=== PATIENT | male | born 1965 | race Caucasian/White ===

== ENCOUNTER 2017-07-18 12:18 | Observation (INO) | payer OTHER ==
[~2017-07-18] VITALS: Ht 177.8 cm; Wt 96.3 kg
[2017-07-18] MEDS ORDERED: NITROGLYCERIN OINT 2% 1GM PACKET EXT STA (12:41)
[2017-07-18] MEDS ORDERED: ASPIRIN 81 MG CHEW PO STA (12:41)
[2017-07-18] MEDS ORDERED: SODIUM CHLORIDE 0.9% 1000ML 500 ML IV STA (12:41)
--- NOTE | 2017-07-18 12:45 | EMERGENCY ROOM VISIT NOTE ---
History Report prepared by Diandra: Carlin Lemus Under the Supervision of: Dr. Timothy Huizar M.D. First contact with patient: 12:34 Chief Complaint: CHEST PAIN Stated Complaint: CHEST PAIN Nursing Triage Summary: Chest pain, center of chest, off and on for approx 3 months. Dyspneic on exertion. States since he was placed on the beta-iain for approx a week and now feels that his hands and feet ache and numb. History of Present Illness The patient is a 51 year old male who presents to the Emergency Room from [facility] with complaints of worsening chest pain that started around 3 months ago. He says that he has been having problems, especially at night, with shortness of breath with exertion, as well as chest tightness. The patient was started on beta-blockers last week, but has had worsening symptoms the past few days. He says that he has had a lot of chest pressure the past couple nights, and his hands have been going numb. Currently, he rates the chest pressure as a 5 out of 10 in severity, but the pain has gotten up to a 7 or 8 out of 10 at night. The patient states that he has been getting lightheaded and dizzy when getting up from laying down or sitting, and has not been able to get around at all over the past week. He adds that he has a strong family history of heart attacks, with lots of family members dying early of CT. The patient says that he has had to have stress tests over the years, but has passed. His last stress test was a few years ago. He notes that he has a history of hypertension and high cholesterol. Source of History: patient, other (senior care notes) Onset: 3 months ago Position: chest Symptom Intensity: gets as bad as 7 or 8 out of 10 in severity Quality: pressure, other Timing: worsening Associated Symptoms: + SOB (with exertion), + numbness (in hands at night) Note: Associated symptoms: Dizzy and lightheaded when getting up. Review of Systems See HPI for pertinent positives & negatives. A total of 10 systems reviewed and were otherwise negative. Past Medical & Surgical Medical Problems: (1) HLD (hyperlipidemia) (2) HTN (hypertension) (3) Precordial chest pain Family History FH: heart disease Social History Smoking Status: Current Every Day Smoker Housing Status: other (prisoner) Occupation Status: other (prisoner) Current/Historical Medications Scheduled Aspirin (Aspirin Ec), 81 MG PO DAILY Atorvastatin (Lipitor), 20 MG PO QPM Levothyroxine Sodium (Levothyroxine Sodium), 50 MCG PO DAILY Lisinopril (Zestril), 10 MG PO DAILY Metoprolol Tartrate (Lopressor) (Lopressor), 25 MG PO BID Nitroglycerin (Nitrostat), 0.4 MG UT PRN Allergies Coded Allergies: No Known Allergies (Unverified , 07/18/17) Physical Exam Vital Signs Date Time Temp Pulse Resp B/P (MAP) Pulse Ox O2 Delivery O2 Flow Rate FiO2 07/18/17 14:00 70 23 128/96 96 Room Air 07/18/17 12:57 74 23 133/86 97 Room Air 07/18/17 12:35 81 07/18/17 12:25 97 Room Air 07/18/17 12:22 36.6 80 18 159/92 97 Room Air Physical Exam GENERAL: Patient is in no acute distress. HEENT: No acute trauma, normocephalic atraumatic, mucous membranes moist, no nasal congestion, no scleral icterus. NECK: No stridor, no adenopathy, no meningismus, trachea is midline. LUNGS: Clear to auscultation bilaterally, no wheeze, no rhonchi, breath sounds equal. HEART: Without murmurs gallops or rubs, regular rate and rhythm. ABDOMEN: Soft, nontender, bowel sounds positive, no hernias, no peritonitis. EXTREMITIES: No cyanosis or edema, full range of motion of all the joints without pain or difficulty, no signs for acute trauma. NEUROLOGIC: Oriented x 3, no acute motor or sensory deficits, no focal weakness. SKIN: No rash, no jaundice, no diaphoresis. Medical Decision & Procedures ER Provider Diagnostic Interpretation: X-ray results as stated below per interpretation by me and the radiologist: CHEST ONE VIEW PORTABLE HISTORY: 51 years-old Male acute chest pain COMPARISON: None available TECHNIQUE: Portable upright AP view of the chest FINDINGS: Cardiomediastinal and hilar silhouettes are within normal limits. No pneumothorax, pleural effusion or focal airspace consolidation. There is no overt pulmonary edema. Bones are grossly intact. IMPRESSION: No acute cardiopulmonary process. The above report was generated using voice recognition software. It may contain grammatical, syntax or spelling errors. Electronically signed by: Galdino Fox M.D. 07/18/2017 1:01 PM Dictated Date/Time: 07/18/2017 1:00 PM Laboratory Results 07/18/17 12:40 07/18/17 12:40 Test 07/18/17 12:40 07/18/17 12:48 07/18/17 14:05 Red Blood Count 4.90 M/uL (4.7-6.1) Mean Corpuscular Volume 90.8 fL (80-100) Mean Corpuscular Hemoglobin 31.8 pg (25-34) Mean Corpuscular Hemoglobin Concent 35.1 g/dl (32-36) RDW Standard Deviation 39.2 fL (36.4-46.3) RDW Coefficient of Variation 11.8 % (11.5-14.5) Mean Platelet Volume 10.7 fL (7.4-10.4) Prothrombin Time 11.7 SECONDS (9.0-12.0) Prothromb Time International Ratio 1.1 (0.9-1.1) Activated Partial Thromboplast Time 27.6 SECONDS (21.0-31.0) Partial Thromboplastin Ratio 1.1 Anion Gap 8.0 mmol/L (3-11) Est Creatinine Clear Calc Drug Dose 107.1 ml/min Estimated GFR () 102.0 Estimated GFR (Non- 88.0 BUN/Creatinine Ratio 14.1 (10-20) Calcium Level 8.9 mg/dl (8.5-10.1) Total Bilirubin 0.3 mg/dl (0.2-1) Aspartate Amino Transf (AST/SGOT) 136 U/L (15-37) Alanine Aminotransferase (ALT/SGPT) 287 U/L (12-78) Alkaline Phosphatase 76 U/L (45-117) Total Protein 7.8 gm/dl (6.4-8.2) Albumin 3.6 gm/dl (3.4-5.0) Globulin 4.2 gm/dl (2.5-4.0) Albumin/Globulin Ratio 0.9 (0.9-2) Bedside D-Dimer 183 ng/mlFEU (0-450) Creatine Kinase MB Ratio (0-3.0) Laboratory results reviewed by me. Medications Administered Medications (Trade) Dose Ordered Sig/Diamond Route Start Time Stop Time Status Last Admin Dose Admin Sodium Chloride 500 ml @ 999 mls/hr Q31M STAT IV 07/18/17 12:41 07/18/17 13:11 DC 07/18/17 12:41 999 MLS/HR Nitroglycerin (Nitroglycerin 2% Oint) 1 inch NOW STAT EXT 07/18/17 12:41 07/18/17 12:43 DC 07/18/17 12:58 1 INCH Aspirin (Aspirin Chew) 324 mg NOW STAT PO 07/18/17 12:41 07/18/17 12:43 DC 07/18/17 12:57 324 MG ECG Indication: chest pain Rate (beats per minute): 72 Rhythm: normal sinus Findings: no acute ischemic change, no ectopy, other (imcomplete RBBB) ED Course 1237: The patient was evaluated in room C4. A complete history and physical exam was performed. 1241: Ordered Aspirin Chew 324 mg PO, Nitroglycerin 2% Oint 1 inch EXT, NSS 500 ml @ 999 mls/hr IV. 1348: I reevaluated and updated the patient. 1404: Reevaluated the patient and he is symptom free after the nitroglycerin. Discussed results and discharge instructions: he verbalized understanding and agreement. The patient will be evaluated for further treatment. 1405: I discussed the patient with Dr. Neil - [facility] hospitalist - he will evaluate the patient for further treatment. Medical Decision Differential diagnosis includes but is not limited to angina, CT, PE, heart failure, anemia, renal failure, electrolyte imbalance. There is no leukocytosis or concerning anemia. No significant electrolyte abnormality or kidney failure. There are elevations to the liver enzymes, likely consistent with his history of hepatitis. There is no coagulopathy. Chest x-ray does not show pneumonia, mediastinal widening or pneumothorax. EKG shows a normal sinus rhythm with an incomplete right bundle branch block, no acute ischemia. Cardiac enzyme testing 1 is not consistent with acute cardiac injury. D-dimer testing is negative. With a negative d-dimer and my low suspicion for PE, I will stop the workup for this diagnosis. The patient was given IV saline, oral aspirin and nitroglycerin paste. He is now symptom free and feels significantly improved. Given the strong family history, his cardiac risk factors of hypertension and high cholesterol, his relief of discomfort with nitroglycerin, further care in the hospital is warranted. I spoke to the patient and case management. The on- call hospitalist was consulted. Medication Reconcilliation Current Medication List: was personally reviewed by me Blood Pressure Screening Patient's blood pressure: Elevated blood pressure Blood pressure disposition: Elevated BP felt to be situational Consults Time Called: 1402 Consulting Physician: Dr. Rashaad RACHEL hospitalist Returned Call: 1405 (in person) I discussed the patient with Dr. Rashaad RACHEL hospitalist - he will evaluate the patient for further treatment. Impression Primary Impression: Precordial chest pain Scribe Attestation The scribe's documentation has been prepared under my direction and personally reviewed by me in its entirety. I confirm that the note above accurately reflects all work, treatment, procedures, and medical decision making performed by me. Departure Information Dispostion Being Evaluated By Hospitalist Referrals Vivian HANEY (PCP) Patient Instructions My [facility]
[2017-07-18 13:01] LABS: HEMATOCRIT 44.5 % (42-52); MEAN CELL VOLUME 90.8 fL (80-100); MEAN CORPUSCULAR HEMOGLOBIN 31.8 pg (25-34); MEAN CORPUSCULAR HGB CONC 35.1 g/dl (32-36); MEAN PLATELET VOLUME 10.7 fL (7.4-10.4); PLATELET COUNT 191 K/uL (130-400); WHITE BLOOD COUNT 6.94 K/uL (4.8-10.8)
--- NOTE | 2017-07-18 13:02 | DIAGNOSTIC IMAGING REPORT ---
CHEST ONE VIEW PORTABLE HISTORY: 51 years-old Male acute chest pain COMPARISON: None available TECHNIQUE: Portable upright AP view of the chest FINDINGS: Cardiomediastinal and hilar silhouettes are within normal limits. No pneumothorax, pleural effusion or focal airspace consolidation. There is no overt pulmonary edema. Bones are grossly intact. IMPRESSION: No acute cardiopulmonary process. The above report was generated using voice recognition software. It may contain grammatical, syntax or spelling errors. Electronically signed by: Galdino Fox M.D. 07/18/2017 1:01 PM Dictated Date/Time: 07/18/2017 1:00 PM
[2017-07-18 13:06] LABS: INR 1.1 (0.9-1.1); PARTIAL THROMBOPLASTIN RATIO 1.1; PROTHROMBIN TIME (PATIENT) 11.7 SECONDS (9.0-12.0)
[2017-07-18 13:24] LABS: ALT/SGPT 287 U/L (12-78); BLOOD UREA NITROGEN 14 mg/dl (7-18); BUN/CREATININE RATIO 14.1 (10-20); CALCIUM 8.9 mg/dl (8.5-10.1); CARBON DIOXIDE 24 mmol/L (21-32); CHLORIDE 110 mmol/L (98-107); GLUCOSE 74 mg/dl (70-99); POTASSIUM 3.8 mmol/L (3.5-5.1); SODIUM 142 mmol/L (136-145)
[2017-07-18] MEDS ORDERED: METO25TA56 PO (13:40)
[2017-07-18] MEDS ORDERED: METO25TA3 PO (13:40)
[2017-07-18] MEDS ORDERED: LISI-461 PO (13:40)
[2017-07-18 13:43] LABS: ALB/GLOB RATIO 0.9 (0.9-2); ALKALINE PHOSPHATASE 76 U/L (45-117); AST/SGOT 136 U/L (15-37); CKMB/CK RATIO 0.3 (0-3.0)
[2017-07-18] MEDS ORDERED: LEVO50TA6 PO (13:44)
[2017-07-18] MEDS ORDERED: NTRGSL/4 UT (13:44)
[2017-07-18] MEDS ORDERED: ATOR-22 PO (13:44)
[2017-07-18] MEDS ORDERED: ASPI81TA28 PO (13:44)
[2017-07-18] MEDS ORDERED: ZOLPIDEM TARTRATE 5 MG TAB PO PRN (14:15)
[2017-07-18] MEDS ORDERED: ACETAMINOPHEN 325 MG TAB PO PRN (14:15)
[2017-07-18] MEDS ORDERED: ONDANSETRON INJ 2 MG/ML 2 ML VIAL IV PRN (14:15)
[2017-07-18] MEDS ORDERED: IV FLUIDS COMPLETED PRN (14:30)
--- NOTE | 2017-07-18 14:40 | History and Physical ---
History & Physical Date & Time of Service: Jul 18, 2017 at 14:31 Chief Complaint: Chest Pain Primary Care Physician: Vivian HANEY History of Present Illness Source: patient, hospital records The patient is a 51-year-old male resident of [facility] who presents emergency department with epigastric and left-sided chest pain that initially began around 3 months ago, and more recently has been associated with shortness of breath with exertion and chest tightness, especially at night. He was started on metoprolol last week, but has worsening symptoms of the past few days. His also developed some lightheadedness and dizziness when going from lying or sitting to standing upright. He has a strong family history of heart attacks on both sides of the family. He has had stress tests in the past, with a last stress test a few years ago being normal. He has been treated for a blood pressure and high cholesterol. He denies any recent signs of infection such as cough or chest congestion. Past Medical/Surgical History Medical Problems: (1) HLD (hyperlipidemia) Status: Chronic (2) HTN (hypertension) Status: Chronic Family History FH: heart disease Social History Smoking Status: Current Every Day Smoker Smokeless Tobacco Use: No Alcohol Use: none Drug Use: none Housing status: other (presently living in [facility]) Occupational Status: other (prisoner) Immunizations History of Influenza Vaccine: Unknown History of Tetanus Vaccine?: Unknown History of Pneumococcal: Unknown History of Hepatitis B Vaccine: Unknown Multi-Drug Resistant Organisms History of MDRO: No Allergies Coded Allergies: No Known Allergies (Unverified , 07/18/17) Home Medications Scheduled Aspirin (Aspirin Ec), 81 MG PO DAILY Atorvastatin (Lipitor), 20 MG PO QPM Levothyroxine Sodium (Levothyroxine Sodium), 50 MCG PO DAILY Lisinopril (Zestril), 10 MG PO DAILY Metoprolol Tartrate (Lopressor) (Lopressor), 25 MG PO BID Nitroglycerin (Nitrostat), 0.4 MG UT PRN Review of Systems The patient denies palpitations, lower extremity swelling, vision change, hearing change, sore throat, fevers, chills, sweats, weight change, fatigue, nausea, vomiting, diarrhea or constipation, abdominal pain, pelvic pain, blood in urine or stool, dysuria, urinary frequency or urgency, headache, memory loss , rash, abnormal bruising or bleeding, imbalance, focal or generalized weakness , numbness or tingling in legs, generalized arthralgias or myalgias, back or neck pain. The review of systems is otherwise negative other than for that already noted above, and at least 10 systems have been reviewed. Physical Exam Vital Signs Date Time Temp Pulse Resp B/P (MAP) Pulse Ox O2 Delivery O2 Flow Rate FiO2 07/18/17 14:00 70 23 128/96 96 Room Air 07/18/17 12:57 74 23 133/86 97 Room Air 07/18/17 12:35 81 07/18/17 12:25 97 Room Air 07/18/17 12:22 36.6 80 18 159/92 97 Room Air The patient is awake, well-developed and adequately nourished, alert and oriented 3, normocephalic and atraumatic, lying in bed and in no acute distress. HEENT--PERRL, EOMI, mucous membranes and oropharynx normal. Neck--supple, no JVD or bruits, thyroid normal, trachea midline, no adenopathy. Heart--normal S1 and S2, no extra beats, no murmurs, rubs or gallops. Lungs--clear bilaterally with good air movement, no respiratory distress, no accessory muscle use. Abdomen--normal bowel sounds and soft, nontender and nondistended, no hernias or masses, no organomegaly. Extremities--no cyanosis, clubbing or edema. There are good distal pulses b/l. Dermatologic--normal skin turgor, normal color, warm and dry, no abnormal lymph nodes, no rash. Neurologic--cranial nerves II through XII grossly intact, motor and sensory examination normal. Rheumatologic--normal range of motion, nontender, muscles and joints. Psychiatric--normal affect. Diagnostics Laboratory Results Results Past 24 Hours Test 07/18/17 12:40 07/18/17 12:48 07/18/17 14:05 Range/Units White Blood Count 6.94 4.8-10.8 K/uL Red Blood Count 4.90 4.7-6.1 M/uL Hemoglobin 15.6 14.0-18.0 g/dL Hematocrit 44.5 42-52 % Mean Corpuscular Volume 90.8 80-100 fL Mean Corpuscular Hemoglobin 31.8 25-34 pg Mean Corpuscular Hemoglobin Concent 35.1 32-36 g/dl RDW Standard Deviation 39.2 36.4-46.3 fL RDW Coefficient of Variation 11.8 11.5-14.5 % Platelet Count 191 130-400 K/uL Mean Platelet Volume 10.7 7.4-10.4 fL Prothrombin Time 11.7 9.0-12.0 SECONDS Prothromb Time International Ratio 1.1 0.9-1.1 Activated Partial Thromboplast Time 27.6 21.0-31.0 SECONDS Partial Thromboplastin Ratio 1.1 Sodium Level 142 136-145 mmol/L Potassium Level 3.8 3.5-5.1 mmol/L Chloride Level 110 98-107 mmol/L Carbon Dioxide Level 24 21-32 mmol/L Anion Gap 8.0 3-11 mmol/L Blood Urea Nitrogen 14 7-18 mg/dl Creatinine 1.00 0.60-1.40 mg/dl Est Creatinine Clear Calc Drug Dose 107.1 ml/min Estimated GFR () 102.0 Estimated GFR (Non- 88.0 BUN/Creatinine Ratio 14.1 10-20 Random Glucose 74 70-99 mg/dl Calcium Level 8.9 8.5-10.1 mg/dl Total Bilirubin 0.3 0.2-1 mg/dl Aspartate Amino Transf (AST/SGOT) 136 15-37 U/L Alanine Aminotransferase (ALT/SGPT) 287 12-78 U/L Alkaline Phosphatase 76 45-117 U/L Total Creatine Kinase 1543 39-308 U/L Creatine Kinase MB 4.9 0.5-3.6 ng/ml Creatine Kinase MB Ratio 0.3 0-3.0 Troponin I < 0.015 0-0.045 ng/ml Total Protein 7.8 6.4-8.2 gm/dl Albumin 3.6 3.4-5.0 gm/dl Globulin 4.2 2.5-4.0 gm/dl Albumin/Globulin Ratio 0.9 0.9-2 Bedside D-Dimer 183 0-450 ng/mlFEU Diagnostic Radiology Patient Name: ANDERSON BLANDON [id number] Unit Number: [id number] Dictated: 07/18/17 1300 Transcribed: 07/18/17 1300 JRB Printed Date/Time: [~ rep prt dt]/[~ rep prt tm] [~ rep ct labl] - [~ rep ct ivnm] [facility] Radiology Department [place], [place] [id number] Dictated: 07/18/17 1300 Transcribed: 07/18/17 1300 JRB Printed Date/Time: [~ rep prt dt]/[~ rep prt tm] [~ rep ct labl] - [~ rep ct ivnm] [~ rep ct add3]] CHEST ONE VIEW PORTABLE HISTORY: 51 years-old Male acute chest pain COMPARISON: None available TECHNIQUE: Portable upright AP view of the chest FINDINGS: Cardiomediastinal and hilar silhouettes are within normal limits. No pneumothorax, pleural effusion or focal airspace consolidation. There is no overt pulmonary edema. Bones are grossly intact. IMPRESSION: No acute cardiopulmonary process. The above report was generated using voice recognition software. It may contain grammatical, syntax or spelling errors. Electronically signed by: Galdino Fox M.D. 07/18/2017 1:01 PM Dictated Date/Time: 07/18/2017 1:00 PM The status of this report is Signed. Draft = Not yet reviewed or approved by Radiologist. Signed = Reviewed and approved by Radiologist. <AttendingPhy></AttendingPhy> <FamilyPhy>Vivian HANEY</FamilyPhy> <PrimaryPhy> Vivian HANEY</PrimaryPhy> <UnitNumber>[id number]</UnitNumber> <VisitNumber> [id number]</VisitNumber> <PatientName>ANDERSON BLANDON [id number]</PatientName> < DateOfBirth>1965</DateOfBirth> <Location>[facility]</Location> <ServiceDate></ServiceDate> <MNE>ESINDI</MNE> <OrderingPhy>Timothy Huizar M.D.</ OrderingPhy> <OrderingPhyMNE>f rep ord dr garcia</OrderingPhyMNE> <DictatingPhyMNE> f rep dict dr garcia</DictatingPhyMNE> <CCListMNE>f rep ct mne</CCListMNE> < AdmittingPhyMNE>f pt admit dr garcia</AdmittingPhyMNE> <AttendingPhyMNE>f pt attend dr garcia</AttendingPhyMNE> <ConsultingPhyMNE>f pt consult dr garcia</ConsultingPhyMNE> <FamilyPhyMNE>f pt fam dr garcia</FamilyPhyMNE> <OtherPhyMNE>f pt other dr garcia</OtherPhyMNE> < PrimaryPhyMNE>f pt prim care dr garcia</PrimaryPhyMNE> <ReferringPhyMNE>f pt referring dr garcia</ReferringPhyMNE> EKG EKG shows normal sinus rhythm at 72 bpm, incomplete right bundle branch block, no acute ST-T changes. Impression Assessment and Plan Precordial chest pain/hypertension/strong family history of heart disease-- The patient will be admitted to telemetry for serial cardiac enzymes, cardiac rhythm monitoring and a 2-D echocardiogram with Dopplers. Continue metoprolol tartrate 25 mg by mouth twice a day. Continue aspirin 81 mg by mouth every morning. Continue lisinopril 10 mg by mouth every morning. Continue nitroglycerin sublinguals when necessary. Placed on Nitropaste 1 inch to the anterior chest wall every 6 hours. If the above workup is negative, consideration should be given stress echocardiogram prior to discharge. Hyperlipidemia--continue Lipitor 20 mg by mouth daily. Hypothyroidism--continue levothyroxine sodium 50 g by mouth daily. Level of Care Telemetry Advanced Directives Existing Advance Directive: No Existing Living Will: No Existing Power of Movie Extra: No Resuscitation Status FULL RESUSCITATION VTE Prophylaxis VTE Risk Assessment Done? Y/N: Yes Risk Level: Moderate Given or contraindicated: SCD's Social Service Consult None Apply
[2017-07-18 15:45] LABS: CKMB/CK RATIO 0.3 (0-3.0)
[2017-07-18 16:08] VITALS: BP 114/72; PULSE 76; TEMP 36.7; O2SAT 98; Ht 177.8 cm; Wt 96.3 kg
[2017-07-18] MEDS: NITROGLYCERIN OINT 2% 1GM PACKET EXT SCH (18:11)
[2017-07-18 20:49] VITALS: BP 120/79; PULSE 70; TEMP 36.6; O2SAT 96
[2017-07-18] MEDS: ATORVASTATIN 20 MG TAB PO SCH (21:07)
[2017-07-18] MEDS: METOPROLOL TARTRATE 25 MG TAB PO SCH (21:08)
--- NOTE | 2017-07-18 21:42 | DIAGNOSTIC IMAGING REPORT ---
(LIVER) ABDOMEN LIMITED CLINICAL HISTORY: 51 years-old Male presenting with ABNORMAL LFT'S. TECHNIQUE: Real-time grayscale and limited color Doppler ultrasound imaging of the abdomen limited to the right upper quadrant was performed. COMPARISON: None. FINDINGS: Pancreas: Obscured due to overlying bowel gas. Liver: Moderately hyperechogenic parenchyma with partial obscuration of the right hemidiaphragm, likely indicating moderate steatosis. The liver measures 19.8 cm in maximal sagittal dimension. No sonographic evidence of hepatic mass. Main portal vein patent with normal directional flow. Biliary: No intrahepatic biliary ductal dilatation. Common bile duct measures up to 5 mm in diameter. Gallbladder: No evidence of gallstones, gallbladder wall thickening, gallbladder distention, or pericholecystic fluid or inflammatory change. Sonographic Tucker's sign negative. Right kidney: Normal in size, measuring 11.7 cm. Echogenic shadowing 7 mm focus with twinkling artifact consistent with renal calculus. No hydronephrosis. Ascites: None. IMPRESSION: 1. Hepatic steatosis and hepatomegaly. 2. No evidence of biliary ductal dilatation. No cholelithiasis or cholecystitis. 3. Nonobstructing 7 mm right renal calculus. Electronically signed by: Baldemar Ahmadi M.D. 07/18/2017 9:41 PM Dictated Date/Time: 07/18/2017 9:39 PM
[2017-07-18 22:49] LABS: CKMB/CK RATIO 0.3 (0-3.0)
[2017-07-18 23:44] VITALS: BP 99/60; PULSE 71; TEMP 36.6; O2SAT 97
[2017-07-19] VITALS (8 sets, daily range): BP systolic 109–142; BP diastolic 69–92; PULSE 62–88; TEMP 36.5–36.9; O2SAT 94–99
[2017-07-19] MEDS: LEVOTHYROXINE 50 MCG TAB PO SCH (06:20)
[2017-07-19] MEDS: NITROGLYCERIN OINT 2% 1GM PACKET EXT SCH ×4 (06:21→18:20)
[2017-07-19 06:39] LABS: BASO % 0.3 %; BASO ABS # 0.02 K/uL (0-0.2); COMPLETE YES; EOS % 4.7 %; HEMATOCRIT 41.2 % (42-52); IG% 0.5 %; LYMPH % 34.4 %; LYMPH ABS # 2.25 K/uL (1.2-3.4); MEAN CORPUSCULAR HEMOGLOBIN 32.1 pg (25-34); MEAN CORPUSCULAR HGB CONC 35.7 g/dl (32-36); MEAN PLATELET VOLUME 11.1 fL (7.4-10.4); MONO % 10.4 %; NEUT % 49.7 %; PLATELET COUNT 152 K/uL (130-400); RED BLOOD COUNT 4.58 M/uL (4.7-6.1); WHITE BLOOD COUNT 6.54 K/uL (4.8-10.8)
[2017-07-19 06:53] LABS: INR 1.1 (0.9-1.1); PARTIAL THROMBOPLASTIN RATIO 1.1; PROTHROMBIN TIME (PATIENT) 11.6 SECONDS (9.0-12.0)
[2017-07-19 07:14] LABS: ALT/SGPT 277 U/L (12-78); AST/SGOT 135 U/L (15-37); BLOOD UREA NITROGEN 15 mg/dl (7-18); BUN/CREATININE RATIO 13.5 (10-20); CALCIUM 8.4 mg/dl (8.5-10.1); CARBON DIOXIDE 26 mmol/L (21-32); CHLORIDE 109 mmol/L (98-107); GLUCOSE 95 mg/dl (70-99); POTASSIUM 3.8 mmol/L (3.5-5.1); SODIUM 140 mmol/L (136-145)
[2017-07-19 07:19] LABS: ALKALINE PHOSPHATASE 69 U/L (45-117); CKMB/CK RATIO 0.3 (0-3.0)
[2017-07-19] MEDS: METOPROLOL TARTRATE 25 MG TAB PO SCH ×2 (09:12→19:41)
[2017-07-19] MEDS: LISINOPRIL 10 MG TAB PO SCH (09:12)
[2017-07-19] MEDS: ASPIRIN 81 MG ECTAB PO SCH (09:12)
[2017-07-19] MEDS ORDERED: FAMOTIDINE 20 MG TAB PO STA (10:29)
[2017-07-19] MEDS ORDERED: DOBUTamine 500MG / 250ML D5W ONE (12:20)
[2017-07-19] MEDS ORDERED: ATROPINE SULFATE 0.1 MG/ML 5ML SYR ONE (12:20)
[2017-07-19] MEDS ORDERED: METOPROLOL TARTRATE 1 MG/ML VIAL ONE (12:20)
--- NOTE | 2017-07-19 12:52 | Medical Student: [facility] ---
Med Student Progress Note Date of Service Jul 19, 2017. Subjective Pt evaluation today including: conversation w/ patient, physical exam, chart review, lab review, review of studies Mr. José Mclean is a 51-year-old male resident of [facility] with PMH of HTN and HLD who presented to [facility] ED on 07/18/17 with epigastric and left-sided chest pain that initially began around 3 months ago, and more recently has been associated with shortness of breath with exertion and chest tightness, especially at night.Last Sunday07/13/17 he was started on metoprolol last week , but has worsening symptoms of the past few days. He reports lightheadedness and dizziness when going from lying or sitting to standing upright. He reports significant family history of CAD on both sides of the family. EKG at admission showed Normal sinus rhythm, Left axis deviation, Incomplete right bundle branch block. Serial Troponin <0.015. Serial CK-MB are downtrending from 4.9 --> 2.9. CXR showed no acute cardiopulmonary process. Today, he reports that his precordial chest pain is improved from yesterday back to his usual baseline. He denies shortness of breath or cough. He reports some lightheadedness. He denies constipation or diarrhea. He slept well and ate 100% of his breakfast. He reports he is eager to return to [facility]. 2 guards at bedside. Review of Systems Constitutional: + problem reported (lightheadedness on position changes ), No fever, No chills Eyes: No worsening of vision, No redness ENT: No sore throat Respiratory: No cough, No wheezing, No shortness of breath, No dyspnea on exertion, No dyspnea at rest Cardiac: + chest pain (precordial. no radiation ), No orthopnea, No edema, No palpitations Abdomen: No pain, No nausea, No vomiting, No diarrhea, No constipation Musculoskeletal: No muscle pain, No calf pain Neurologic: No weakness, No numbness/tingling Psychiatric: No depression symptoms, No anxiety Heme: No abnormal bleeding/bruising, No clotting problems Endo: No excessive thirst, No excessive urination Skin: No rash, No itch Objective Vital Signs Date Time Temp Pulse Resp B/P (MAP) Pulse Ox O2 Delivery O2 Flow Rate FiO2 07/19/17 07:57 36.9 88 16 142/70 (94) 99 07/19/17 04:15 36.5 62 18 123/78 (93) 96 Room Air 07/19/17 04:00 98 Room Air 07/19/17 00:00 98 Room Air 07/18/17 23:44 36.6 71 18 99/60 (73) 97 Room Air 07/18/17 20:49 36.6 70 18 120/79 (93) 96 Room Air 07/18/17 20:00 Room Air 07/18/17 16:08 36.7 76 18 114/72 98 Room Air 07/18/17 15:45 75 22 119/81 96 Room Air 07/18/17 14:00 70 23 128/96 96 Room Air 07/18/17 12:57 74 23 133/86 97 Room Air 07/18/17 12:35 81 07/18/17 12:25 97 Room Air 07/18/17 12:22 36.6 80 18 159/92 97 Room Air Physical Exam General Appearance: WD/WN, no apparent distress, + pertinent finding (left arm and leg handcuffed to bed ) ENT: normal ENT inspection, hearing grossly normal Neck: supple, no adenopathy, trachea midline Respiratory/Chest: chest non-tender, lungs clear, normal breath sounds, no respiratory distress, no accessory muscle use Cardiovascular: regular rate, rhythm, no edema, no gallop, no JVD, no murmur Abdomen: normal bowel sounds, non tender, soft, no organomegaly Extremities: non-tender 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, alert, normal mood/affect, oriented x 3 Skin: normal color, warm/dry, no rash Lymphatic: no adenopathy Laboratory Results Last 24 Hours Test 07/18/17 12:40 07/18/17 12:48 07/18/17 14:48 07/18/17 22:04 White Blood Count 6.94 K/uL Red Blood Count 4.90 M/uL Hemoglobin 15.6 g/dL Hematocrit 44.5 % Mean Corpuscular Volume 90.8 fL Mean Corpuscular Hemoglobin 31.8 pg Mean Corpuscular Hemoglobin Concent 35.1 g/dl RDW Standard Deviation 39.2 fL RDW Coefficient of Variation 11.8 % Platelet Count 191 K/uL Mean Platelet Volume 10.7 fL Prothrombin Time 11.7 SECONDS Prothromb Time International Ratio 1.1 Activated Partial Thromboplast Time 27.6 SECONDS Partial Thromboplastin Ratio 1.1 Sodium Level 142 mmol/L Potassium Level 3.8 mmol/L Chloride Level 110 mmol/L Carbon Dioxide Level 24 mmol/L Anion Gap 8.0 mmol/L Blood Urea Nitrogen 14 mg/dl Creatinine 1.00 mg/dl Est Creatinine Clear Calc Drug Dose 107.1 ml/min Estimated GFR () 102.0 Estimated GFR (Non- 88.0 BUN/Creatinine Ratio 14.1 Random Glucose 74 mg/dl Calcium Level 8.9 mg/dl Total Bilirubin 0.3 mg/dl Aspartate Amino Transf (AST/SGOT) 136 U/L Alanine Aminotransferase (ALT/SGPT) 287 U/L Alkaline Phosphatase 76 U/L Total Creatine Kinase 1543 U/L 1371 U/L 1208 U/L Creatine Kinase MB 4.9 ng/ml 4.2 ng/ml 3.3 ng/ml Creatine Kinase MB Ratio 0.3 0.3 0.3 Troponin I < 0.015 ng/ml 0.017 ng/ml < 0.015 ng/ml Total Protein 7.8 gm/dl Albumin 3.6 gm/dl Globulin 4.2 gm/dl Albumin/Globulin Ratio 0.9 Bedside D-Dimer 183 ng/mlFEU Hepatitis B Surface Antigen NEG Hepatitis C Antibody PRELIM POS Test 07/19/17 06:15 White Blood Count 6.54 K/uL Red Blood Count 4.58 M/uL Hemoglobin 14.7 g/dL Hematocrit 41.2 % Mean Corpuscular Volume 90.0 fL Mean Corpuscular Hemoglobin 32.1 pg Mean Corpuscular Hemoglobin Concent 35.7 g/dl Platelet Count 152 K/uL Mean Platelet Volume 11.1 fL Neutrophils (%) (Auto) 49.7 % Lymphocytes (%) (Auto) 34.4 % Monocytes (%) (Auto) 10.4 % Eosinophils (%) (Auto) 4.7 % Basophils (%) (Auto) 0.3 % Neutrophils # (Auto) 3.25 K/uL Lymphocytes # (Auto) 2.25 K/uL Monocytes # (Auto) 0.68 K/uL Eosinophils # (Auto) 0.31 K/uL Basophils # (Auto) 0.02 K/uL RDW Standard Deviation 39.3 fL RDW Coefficient of Variation 12.0 % Immature Granulocyte % (Auto) 0.5 % Immature Granulocyte # (Auto) 0.03 K/uL Prothrombin Time 11.6 SECONDS Prothromb Time International Ratio 1.1 Activated Partial Thromboplast Time 27.3 SECONDS Partial Thromboplastin Ratio 1.1 Sodium Level 140 mmol/L Potassium Level 3.8 mmol/L Chloride Level 109 mmol/L Carbon Dioxide Level 26 mmol/L Anion Gap 5.0 mmol/L Blood Urea Nitrogen 15 mg/dl Creatinine 1.10 mg/dl Est Creatinine Clear Calc Drug Dose 96.3 ml/min Estimated GFR () 90.9 Estimated GFR (Non- 78.4 BUN/Creatinine Ratio 13.5 Random Glucose 95 mg/dl Calcium Level 8.4 mg/dl Magnesium Level 2.0 mg/dl Total Bilirubin 0.5 mg/dl Direct Bilirubin 0.1 mg/dl Aspartate Amino Transf (AST/SGOT) 135 U/L Alanine Aminotransferase (ALT/SGPT) 277 U/L Alkaline Phosphatase 69 U/L Total Creatine Kinase 843 U/L Creatine Kinase MB 2.9 ng/ml Creatine Kinase MB Ratio 0.3 Troponin I < 0.015 ng/ml Total Protein 7.2 gm/dl Albumin 3.3 gm/dl Medications Current Inpatient Medications Medications (Trade) Dose Ordered Sig/Diamond Route Start Time Stop Time Status Last Admin Dose Admin Acetaminophen (Tylenol Tab) 650 mg Q4H PRN PO 07/18/17 14:15 08/17/17 14:14 Zolpidem Tartrate (Ambien Tab) 5 mg HSZ PRN PO 07/18/17 14:15 08/17/17 14:14 Nitroglycerin (Nitroglycerin 2% Oint) 1 inch Q6H EXT 07/18/17 18:00 08/17/17 17:59 07/19/17 06:21 1 INCH Ondansetron HCl (Zofran Inj) 4 mg Q6H PRN IV 07/18/17 14:15 08/17/17 14:14 Aspirin (Ecotrin Tab) 81 mg DAILY PO 07/19/17 09:00 08/18/17 08:59 07/19/17 09:12 81 MG Atorvastatin Calcium (Lipitor Tab) 20 mg QPM PO 07/18/17 21:00 08/17/17 20:59 07/18/17 21:07 20 MG Levothyroxine Sodium (Synthroid Tab) 50 mcg DAILYBB PO 07/19/17 06:00 08/18/17 06:59 07/19/17 06:20 50 MCG Lisinopril (Zestril Tab) 10 mg DAILY PO 07/19/17 09:00 08/18/17 08:59 07/19/17 09:12 10 MG Metoprolol Tartrate (Lopressor Tab) 25 mg BID PO 07/18/17 21:00 08/17/17 20:59 07/19/17 09:12 25 MG Miscellaneous (Iv Fluids Completed) 1 ea PRN PRN N/A 07/18/17 14:30 07/18/18 14:29 Famotidine (Pepcid Tab) 20 mg BID PO 07/19/17 21:00 08/18/17 20:59 Diagnostic Radiology CHEST ONE VIEW PORTABLE HISTORY: 51 years-old Male acute chest pain COMPARISON: None available TECHNIQUE: Portable upright AP view of the chest FINDINGS: Cardiomediastinal and hilar silhouettes are within normal limits. No pneumothorax, pleural effusion or focal airspace consolidation. There is no overt pulmonary edema. Bones are grossly intact. IMPRESSION: No acute cardiopulmonary process. (LIVER) ABDOMEN LIMITED CLINICAL HISTORY: 51 years-old Male presenting with ABNORMAL LFT'S. TECHNIQUE: Real-time grayscale and limited color Doppler ultrasound imaging of the abdomen limited to the right upper quadrant was performed. COMPARISON: None. FINDINGS: Pancreas: Obscured due to overlying bowel gas. Liver: Moderately hyperechogenic parenchyma with partial obscuration of the right hemidiaphragm, likely indicating moderate steatosis. The liver measures 19.8 cm in maximal sagittal dimension. No sonographic evidence of hepatic mass. Main portal vein patent with normal directional flow. Biliary: No intrahepatic biliary ductal dilatation. Common bile duct measures up to 5 mm in diameter. Gallbladder: No evidence of gallstones, gallbladder wall thickening, gallbladder distention, or pericholecystic fluid or inflammatory change. Sonographic Tucker's sign negative. Right kidney: Normal in size, measuring 11.7 cm. Echogenic shadowing 7 mm focus with twinkling artifact consistent with renal calculus. No hydronephrosis. Ascites: None. IMPRESSION: 1. Hepatic steatosis and hepatomegaly. 2. No evidence of biliary ductal dilatation. No cholelithiasis or cholecystitis. 3. Nonobstructing 7 mm right renal calculus. EKG Normal sinus rhythm Left axis deviation Incomplete right bundle branch block Abnormal ECG When compared with ECG of 18-JUL-2017 12:30, No significant change was found QT/QTc 406/425 ms Assessment and Plan Assessment and Plan: ASSESSMENT: Mr. José Mclean is a 51-year-old male resident of [facility] with PMH of HTN and HLD here for workup for persistent precordial chest pain in the setting of significant family history of CAD. Differential diagnosis should include cardiac causes such as acute coronary syndrome (ACS), pericarditis, or aortic dissection. The character of the pain is more consistent with ACS and less likely pericarditis or dissection. Pulmonary, GI, and MSK causes of chest pain are less likely given the patient's history. Vitals have remained stable.Overall , he has a low probability of ACS given his negative EKG and troponins, therefore noninvasive stress test (exercise or pharmacologic) is indicated. PLAN: Precordial chest pain Continue telemetry Serial cardiac enzymes: Troponins WNL, CK-MB downtrending 4.9 --> 2.9. Troponins are more sensitive and specific, as cK-MB can be electated with damage to skeletal muscle, tongue, diaphragm, intestine, or prostate. NPO after midnight for stress 2-D echocardiogram with Dopplers tomorrow Continue metoprolol tartrate 25 mg by mouth twice a day. Continue aspirin 81 mg by mouth every morning. Continue lisinopril 10 mg by mouth every morning. Continue nitroglycerin sublinguals when necessary. Hyperlipidemia Continue Lipitor 20 mg by mouth daily. Hypothyroidism Continue levothyroxine sodium 50 g by mouth daily. Hepatitis C Currently asymptomatic Hepatitis C Virus Positive, unclear if acute or chronic HBsAg Negative Elevated liver enzymes AST 135 ALT 277 HCV RNA pending as marker of active infection HBV IgM and HAV IgM pending - should be vaccinated if not immune Level of Care Telemetry Advanced Directives Existing Advance Directive: No Existing Living Will: No Existing Power of Audit Associate: No Resuscitation Status FULL RESUSCITATION VTE Prophylaxis VTE Risk Assessment Done? Y/N: Yes Risk Level: Moderate Given or contraindicated: SCD's
--- NOTE | 2017-07-19 16:24 | Progress Note ---
Subjective Date of Service: Jul 19, 2017. Subjective Pt evaluation today including: conversation w/ patient, chart review, lab review, review of studies, review of inpatient medication list To have some chest pain in the middle on the chest, 3-4 out of 10, reported history of hep C not treated No other complaint, do not acid reflux and heartburn Review of Systems Constitutional: No fever, No chills, No sweats, No weight loss, No weakness, No fatigue, No problem reported Eyes: No worsening of vision, No eye pain, No redness, No discharge, No diplopia ENT: No hearing loss, No unusual epistaxis, No nasal symptoms, No sore throat, No tinnitus, No dental problems, No trouble swallowing Respiratory: No cough, No sputum, No wheezing, No shortness of breath, No dyspnea on exertion, No dyspnea at rest, No hemoptysis Cardiac: No chest pain, No orthopnea, No PND, No edema, No claudication, No palpitations Abdomen: No pain, No nausea, No vomiting, No diarrhea, No constipation Musculoskeletal: No joint pain, No muscle pain, No swelling, No calf pain Male : No dysuria, No urinary frequency, No incontinence, No nocturia more than once/night, No slowing stream, No hematuria Neurologic: No memory loss, No paralysis, No weakness, No numbness/tingling, No vertigo, No balance problems Psychiatric: No depression symptoms, No anhedonism, No anxiety, No insomnia, No substance abuse Heme: No abnormal bleeding/bruising, No clotting problems, No swollen lymph nodes, No night sweats Endo: No fatigue, No excessive thirst, No excessive urination Skin: No rash, No itch, No new/changing skin lesions, No color change, No bleeding Objective Vital Signs Date Time Temp Pulse Resp B/P (MAP) Pulse Ox O2 Delivery O2 Flow Rate FiO2 07/19/17 16:00 Room Air 07/19/17 15:31 36.8 78 20 140/92 (108) 96 Room Air 07/19/17 12:00 Room Air 07/19/17 11:39 36.8 85 15 142/69 (93) 99 07/19/17 08:00 Room Air 07/19/17 07:57 36.9 88 16 142/70 (94) 99 07/19/17 04:15 36.5 62 18 123/78 (93) 96 Room Air 07/19/17 04:00 98 Room Air 07/19/17 00:00 98 Room Air 07/18/17 23:44 36.6 71 18 99/60 (73) 97 Room Air 07/18/17 20:49 36.6 70 18 120/79 (93) 96 Room Air 07/18/17 20:00 Room Air Physical Exam General Appearance: WD/WN, no apparent distress Eyes: normal inspection, PERRL, EOMI, sclerae normal ENT: normal ENT inspection, hearing grossly normal, pharynx normal Neck: supple, no adenopathy, thyroid normal, no JVD, no carotid bruits, trachea midline Respiratory/Chest: chest non-tender, lungs clear, normal breath sounds, no respiratory distress, no accessory muscle use Cardiovascular: regular rate, rhythm, no edema, no gallop, no JVD, no murmur Abdomen: normal bowel sounds, non tender, soft, no organomegaly, no pulsatile mass Extremities: normal range of motion, non-tender, normal inspection, no pedal edema, no calf tenderness, normal capillary refill, pelvis stable 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, no motor/sensory deficits, alert, normal mood/affect, oriented x 3 Skin: normal color, warm/dry, no rash Lymphatic: no adenopathy Laboratory Results Last 24 Hours Test 07/18/17 22:04 07/19/17 06:15 Total Creatine Kinase 1208 U/L 843 U/L Creatine Kinase MB 3.3 ng/ml 2.9 ng/ml Creatine Kinase MB Ratio 0.3 0.3 Troponin I < 0.015 ng/ml < 0.015 ng/ml White Blood Count 6.54 K/uL Red Blood Count 4.58 M/uL Hemoglobin 14.7 g/dL Hematocrit 41.2 % Mean Corpuscular Volume 90.0 fL Mean Corpuscular Hemoglobin 32.1 pg Mean Corpuscular Hemoglobin Concent 35.7 g/dl Platelet Count 152 K/uL Mean Platelet Volume 11.1 fL Neutrophils (%) (Auto) 49.7 % Lymphocytes (%) (Auto) 34.4 % Monocytes (%) (Auto) 10.4 % Eosinophils (%) (Auto) 4.7 % Basophils (%) (Auto) 0.3 % Neutrophils # (Auto) 3.25 K/uL Lymphocytes # (Auto) 2.25 K/uL Monocytes # (Auto) 0.68 K/uL Eosinophils # (Auto) 0.31 K/uL Basophils # (Auto) 0.02 K/uL RDW Standard Deviation 39.3 fL RDW Coefficient of Variation 12.0 % Immature Granulocyte % (Auto) 0.5 % Immature Granulocyte # (Auto) 0.03 K/uL Prothrombin Time 11.6 SECONDS Prothromb Time International Ratio 1.1 Activated Partial Thromboplast Time 27.3 SECONDS Partial Thromboplastin Ratio 1.1 Sodium Level 140 mmol/L Potassium Level 3.8 mmol/L Chloride Level 109 mmol/L Carbon Dioxide Level 26 mmol/L Anion Gap 5.0 mmol/L Blood Urea Nitrogen 15 mg/dl Creatinine 1.10 mg/dl Est Creatinine Clear Calc Drug Dose 96.3 ml/min Estimated GFR () 90.9 Estimated GFR (Non- 78.4 BUN/Creatinine Ratio 13.5 Random Glucose 95 mg/dl Calcium Level 8.4 mg/dl Magnesium Level 2.0 mg/dl Total Bilirubin 0.5 mg/dl Direct Bilirubin 0.1 mg/dl Aspartate Amino Transf (AST/SGOT) 135 U/L Alanine Aminotransferase (ALT/SGPT) 277 U/L Alkaline Phosphatase 69 U/L Total Protein 7.2 gm/dl Albumin 3.3 gm/dl Assessment and Plan 51-year-old inmate admitted because of Precordial chest pain/hypertension/ strong family history of heart disease Chest pain with risk factors Need to rule out ACS Cardio and troponin negative 2 set Continue telemetry Continue metoprolol tartrate 25 mg by mouth twice a day. Continue aspirin 81 mg by mouth every morning. Continue lisinopril 10 mg by mouth every morning. Continue nitroglycerin sublinguals when necessary. Placed on Nitropaste 1 inch to the anterior chest wall every 6 hours. Dobutamine stress echo ordered to rule out ACS Start Pepcid for possible GERD Hyperlipidemia--continue Lipitor 20 mg by mouth daily. Hypothyroidism--continue levothyroxine sodium 50 g by mouth daily. History of hepatitis C with Abnormal liver enzymes right upper quadrant of abdomen was done Fay follow-up the rest of hepatitis panel Follow-up stress test, if positive for cardiology consult, if negative will discharge Continued [facility] stay due to: multiple IV medications needed Discharge planning: home
--- NOTE | 2017-07-19 18:42 | DOBUTAMINE ECHO ---
*NOTICE TO RECEIVING DEMOCRAT AGENCY This information is strictly Confidential and protected under [place] law. [place] law prohibits you from making any further disclosure of this information unless further disclosure is expressly permitted by the written consent of the person to whom it pertains or is authorized by law. A general authorization for the release of medical or other information is not sufficient for this purpose. Hospital accepts no responsibility if the information is made available to any other person, INCLUDING THE PATIENT. Interpretation Summary * Name: ANDERSON BLANDON [id number] Study Date: 07/19/2017 11:34 AM BP: 142/83 mmHg * Patient Location: [facility] HR: 70 * : 1965 (M/d/yyyy) Gender: Male Height: 70 in * Age: 51 yrs Ethnicity: [place] Weight: 220 lb * Ordering Physician: Russel Lamb * Referring Physician: Vivian HANEY * Performed By: Emanuel Ramirez RCS * * Reason For Study: Chest Pain * BSA: 2.2 m2 * -- Conclusions -- * Left ventricular systolic function is normal. * Diagnostic dobutamine echocardiogram without evidence of inducible ischemia * There is mild mitral regurgitation. Procedure Details * DOBUTAMINE ECHO, CPT#[id number] * ECHO COLOR FLOW, CPT #[id number] * ECHO DOPPLER, CPT #[id number] Left Ventricular Findings with Stress * Diagnostic dobutamine echocardiogram without evidence of inducible ischemia Left Ventricle * The left ventricle is normal in size. * There is normal left ventricular wall thickness. * Ejection Fraction = 55-60%. * Left ventricular systolic function is normal. * Normal diastolic function * The left ventricular wall motion is normal at rest. Right Ventricle * The right ventricle is normal in size and function. Atria * The left atrial size is normal. * Right atrial size is normal. Mitral Valve * The mitral valve anatomy is normal. * There is mild mitral regurgitation. Tricuspid Valve * The tricuspid valve anatomy is normal. * Significant tricuspid regurgitation is absent. Aortic Valve * The aortic valve is trileaflet. * Heavy calcification of the non coronary cusp at the coaptation * No hemodynamically significant valvular aortic stenosis. * There is no significant aortic regurgitation. Great Vessels * The aortic root is normal size. Pericardium * There is no pericardial effusion. Stress Parameters * Normal baseline electrocardiogram. * Stress ECG: No ST changes. No arrhythmias. * The stress portion of this study was personally supervised by the undersigned interpreting physician. * Rest heart rate was '70' BPM. * Rest blood pressure was '142/83' * Maximum heart rate achieved was 157 bpm. * Maximum heart rate was 91 % of maximum age-predicted heart rate. * Maximum blood pressure was '197/87' * Maximum Dobutamine infusion rate was '50' mcg/kg/min. * A total of 1.25 mg of intravenous Atropine was used to supplement Dobutamine for heart rate response. * Dobutamine infusion was terminated due to achieving target heart rate * A total of 10 mg of IV Metoprolol was administered to reverse Dobutamine-induced tachycardia. * The patient did not exhibit any symptoms during drug infusion. Left Ventricular Findings with Stress * Baseline EKG was normal There are no significant EKG changes with dobutamine infusion Baseline echocardiogram demonstrated normal wall motion There was normal augmentation of all flores with dobutamine infusion There was a hypertensive response to dobutamine infusion MMode 2D Measurements and Calculations IVSd 1.1 cm IVSs 1.3 cm LVIDd 4.5 cm LVIDs 3.2 cm LVPWd 1.0 cm LVPWs 1.2 cm IVS/LVPW 1.0 FS 27.5 % EDV(Teich) 91.6 ml ESV(Teich) 42.4 ml EF(Teich) 53.7 % EDV(cubed) 90.0 ml ESV(cubed) 34.2 ml EF(cubed) 62.0 % % IVS thick 26.7 % % LVPW thick 15.5 % LV mass(C)d 161.8 grams LV mass(C)dI 74.4 grams/m\S\2 LV mass(C)s 132.5 grams LV mass(C)sI 61.0 grams/m\S\2 CO(Teich) 3.0 l/min CI(Teich) 1.4 l/min/m\S\2 SV(Teich) 49.1 ml SI(Teich) 22.6 ml/m\S\2 CO(cubed) 3.5 l/min CI(cubed) 1.6 l/min/m\S\2 SV(cubed) 55.8 ml SI(cubed) 25.7 ml/m\S\2 Ao root diam 3.3 cm Ao root area 8.8 cm\S\2 ACS 1.5 cm LA dimension 3.4 cm asc Aorta Diam 3.6 cm LA/Ao 1.0 LVAd ap4 39.2 cm\S\2 LVLd ap4 9.6 cm EDV(MOD-sp4) 132.0 ml LVAs ap4 23.5 cm\S\2 LVLs ap4 7.6 cm ESV(MOD-sp4) 61.0 ml EF(MOD-sp4) 53.8 % LVAd ap2 39.9 cm\S\2 LVLd ap2 9.9 cm EDV(MOD-sp2) 132.0 ml LVAs ap2 22.2 cm\S\2 LVLs ap2 8.3 cm ESV(MOD-sp2) 52.0 ml EF(MOD-sp2) 60.6 % CO(MOD-sp4) 4.4 l/min CI(MOD-sp4) 2.0 l/min/m\S\2 SV(MOD-sp4) 71.0 ml SI(MOD-sp4) 32.7 ml/m\S\2 CO(MOD-sp2) 5.0 l/min CI(MOD-sp2) 2.3 l/min/m\S\2 SV(MOD-sp2) 80.0 ml SI(MOD-sp2) 36.8 ml/m\S\2 Doppler Measurements and Calculations MV E max wm 81.8 cm/sec MV A max wm 67.1 cm/sec MV E/A 1.2 MV P1/2t max wm 90.2 cm/sec MV P1/2t 89.0 msec MVA(P1/2t) 2.5 cm\S\2 MV dec slope 296.9 cm/sec\S\2 MV dec time 0.24 sec Ao V2 max 111.3 cm/sec Ao max PG 5.0 mmHg Ao max PG (full) 1.9 mmHg LV V1 max PG 3.1 mmHg LV V1 max 87.5 cm/sec PA V2 max 82.6 cm/sec PA max PG 2.7 mmHg PI max wm 138.8 cm/sec PI max PG 7.7 mmHg PI dec slope 68.5 cm/sec\S\2 PI P1/2t 593.0 msec
[2017-07-19] MEDS: FAMOTIDINE 20 MG TAB PO SCH (19:41)
[2017-07-19] MEDS: ATORVASTATIN 20 MG TAB PO SCH (19:41)
[2017-07-20 03:26] VITALS: BP 120/71; PULSE 71; TEMP 36.8; O2SAT 94
[2017-07-20 05:39] VITALS: BP 125/74
[2017-07-20 05:57] LABS: BASO % 0.4 %; BASO ABS # 0.03 K/uL (0-0.2); COMPLETE YES; EOS % 3.7 %; HEMATOCRIT 43.5 % (42-52); IG% 0.5 %; LYMPH % 29.6 %; LYMPH ABS # 2.37 K/uL (1.2-3.4); MEAN CELL VOLUME 89.7 fL (80-100); MEAN CORPUSCULAR HGB CONC 35.6 g/dl (32-36); MEAN PLATELET VOLUME 11.1 fL (7.4-10.4); MONO % 11.3 %; NEUT % 54.5 %; PLATELET COUNT 174 K/uL (130-400); RED BLOOD COUNT 4.85 M/uL (4.7-6.1); WHITE BLOOD COUNT 8.02 K/uL (4.8-10.8)
[2017-07-20] MEDS: NITROGLYCERIN OINT 2% 1GM PACKET EXT SCH ×2 (06:00)
[2017-07-20 06:14] VITALS: PULSE 58
[2017-07-20] MEDS: LEVOTHYROXINE 50 MCG TAB PO SCH (06:18)
[2017-07-20 06:19] LABS: INR 1.1 (0.9-1.1); PROTHROMBIN TIME (PATIENT) 11.7 SECONDS (9.0-12.0)
[2017-07-20 06:29] LABS: BUN/CREATININE RATIO 13.9 (10-20); CALCIUM 8.8 mg/dl (8.5-10.1); CREATININE 1.2 mg/dl (0.60-1.40); MAGNESIUM 2.1 mg/dl (1.8-2.4); POTASSIUM 3.9 mmol/L (3.5-5.1)
[2017-07-20] MEDS ORDERED: FAMO1TAB47 PO (07:06)
--- NOTE | 2017-07-20 07:13 | Discharge Instructions ---
Discharge Instructions Date of Service Jul 20, 2017. Admission Reason for Admission: Chest Pain Discharge Discharge Diagnosis / Problem: atypical chest pain Discharge Goals Goal(s): Decrease discomfort, Improve function, Increase independence, Improve disease control, Improve nutritional status, Learn about illness, Diagnostic testing, Therapeutic intervention, Prevent Disease Progression, Specific goals Activity Recommendations Activity Limitations: resume your previous activity . Instructions / Follow-Up Instructions / Follow-Up atypical chest pain has ruled out ACS by stress test give you Pepcid for possible GERD you have history of hepatitis C, blood test are positive hepatics C antibody , and abnormal liver function test, you need to follow up with your doctor in your facility - you need to follow up with your primary care physician in 1 week, - take medication as instructed, never overdose or any misuse, or take with alcohol, because misuse of medicine may cause organ damage or , call your primary care physician if have questions of medicaitons. - call your primary care physician OR go to local emergency room if has any fever/chill, chest pain, shortness of breathing, nausea/vomiting/abdominal pain , facial droop/slurry speech/local weakness, or if has any questions. - fall precaution - diet as instructed - you need to follow up with your subspecialist - you should understand that it is important to follow up the above instruction , and "not following the above instruction" may cause delayed or missed care of your medical conditions which may cause permanent organ damage and even . Current Hospital Diet Patient's current hospital diet: AHA Diet (Heart Healthy) Discharge Diet Recommended Diet: AHA Diet (Heart Healthy) Pending Studies Studies pending at discharge: no Medical Emergencies . Who to Call and When: Medical Emergencies: If at any time you feel your situation is an emergency, please call 911 immediately. . Non-Emergent Contact Non-Emergency issues call your: Primary Care Provider Call Non-Emergent contact if: you have a fever . . "Provider Documentation" section prepared by Tremaine Lamb. . VTE Core Measure Inpt VTE Proph given/why not?: SCD's
[2017-07-20 07:35] VITALS: BP 129/62; PULSE 59; TEMP 36.9; O2SAT 96
[2017-07-20] MEDS: LISINOPRIL 10 MG TAB PO SCH (09:14)
[2017-07-20] MEDS: ASPIRIN 81 MG ECTAB PO SCH (09:14)
[2017-07-20] MEDS: FAMOTIDINE 20 MG TAB PO SCH (09:14)
[2017-07-20] MEDS: METOPROLOL TARTRATE 25 MG TAB PO SCH (09:14)
--- NOTE | 2017-07-20 09:30 | Discharge Summary ---
Discharge Summary Date of Service Jul 20, 2017. Discharge Summary Admission Date: Jul 18, 2017 at 16:11 Discharge Date: Jul 20, 2017 Discharge Disposition: Home Principal Diagnosis: atypical chest pain Problems/Secondary Diagnoses: possible GERD history of hepatitis C Immunizations: Have You Had Influenza Vaccine: Unknown History of Tetanus Vaccine?: Unknown History of Pneumococcal: Unknown History of Hepatitis B Vaccine: Unknown Procedures: Dobutamine stress test with echo Consultations: No Medication Reconciliation New Medications: Famotidine (Famotidine) 20 Mg Tab 20 MG PO BID for 7 Days, #14 TAB Continued Medications: Aspirin (Aspirin Ec) 81 Mg Tab 81 MG PO DAILY Atorvastatin (Lipitor) 20 Mg Tab 20 MG PO QPM, TAB Levothyroxine Sodium (Levothyroxine Sodium) 50 Mcg Tab 50 MCG PO DAILY for 90 Days, #90 TAB 3 Refills Lisinopril (Zestril) 10 Mg Tab 10 MG PO DAILY, TAB Metoprolol Tartrate (Lopressor) (Lopressor) 25 Mg Tab 25 MG PO BID, TAB Nitroglycerin (Nitrostat) 0.4 Mg Tab 0.4 MG UT PRN, BTL PLACE 1 TAB UNDER TONGUE FOR CP. REPEAT IN 5 MINUTES AND NOTIFY MEDICAL IF CP PERSISTS. Discharge Exam Doing okay, no more chest pain, no heartburn or epigastric pain Review of Systems: Constitutional: No fever, No chills, No sweats, No weight loss, No weakness , No fatigue, No problem reported Eyes: No worsening of vision, No eye pain, No redness, No discharge, No diplopia, No problem reported ENT: No hearing loss, No unusual epistaxis, No nasal symptoms, No sore throat, No tinnitus, No dental problems, No trouble swallowing, No problem reported Respiratory: No cough, No sputum, No wheezing, No shortness of breath, No dyspnea on exertion, No dyspnea at rest, No hemoptysis, No problem reported Cardiovascular: No chest pain, No orthopnea, No PND, No edema, No claudication, No palpitations, No problem reported Abdomen: No pain, No nausea, No vomiting, No diarrhea, No constipation, No GI bleeding, No problem reported Musculoskeletal: No joint pain, No muscle pain, No swelling, No calf pain, No problem reported Genitourinary - Male: No hematuria, No dysuria, No urinary frequency, No urinary urgency, No urinary hesitancy, No urinary retention, No urinary incontinence, No penile discharge, No lesions, No impotence, No problem reported Neurologic: No memory loss, No paralysis, No weakness, No numbness/tingling , No vertigo, No balance problems, No problem reported Psychiatric: No depression symptoms, No anhedonism, No anxiety, No insomnia , No substance abuse, No problem reported Endocrine: No fatigue, No excessive thirst, No excessive urination, No problem reported Hematologic / Lymphatic: No abnormal bleeding/bruising, No clotting problems , No swollen lymph nodes, No night sweats, No problem reported Integumentary: No rash, No itch, No new/changing skin lesions, No color change, No bleeding, No problem reported Hospital Course 51-year-old inmate admitted because of Precordial chest pain/hypertension/ strong family history of heart disease Chest pain with risk factors has ruled out ACS by stress test Cardio and troponin negative 2 set Has been on telemetry Continue metoprolol tartrate 25 mg by mouth twice a day. Continue aspirin 81 mg by mouth every morning. Continue lisinopril 10 mg by mouth every morning. Continue nitroglycerin sublinguals when necessary. Placed on Nitropaste 1 inch to the anterior chest wall every 6 hours. Start Pepcid for possible GERD, will continue when he living for home Hyperlipidemia--continue Lipitor 20 mg by mouth daily. Hypothyroidism--continue levothyroxine sodium 50 g by mouth daily. History of hepatitis C with Abnormal liver enzymes right upper quadrant of abdomen was done, I advise him to follow-up with PCP on the doctor in the facility to continue follow-up with the treatment plan if needed Follow-up stress test, if positive for cardiology consult, if negative will discharge Instructions / Follow-Up atypical chest pain has ruled out ACS by stress test give you Pepcid for possible GERD you have history of hepatitis C, blood test are positive hepatics C antibody , and abnormal liver function test, you need to follow up with your doctor in your facility - you need to follow up with your primary care physician in 1 week, - take medication as instructed, never overdose or any misuse, or take with alcohol, because misuse of medicine may cause organ damage or , call your primary care physician if have questions of medicaitons. - call your primary care physician OR go to local emergency room if has any fever/chill, chest pain, shortness of breathing, nausea/vomiting/abdominal pain , facial droop/slurry speech/local weakness, or if has any questions. - fall precaution - diet as instructed - you need to follow up with your subspecialist - you should understand that it is important to follow up the above instruction , and "not following the above instruction" may cause delayed or missed care of your medical conditions which may cause permanent organ damage and even . Total Time Spent: Less than 30 minutes This includes examination of the patient, discharge planning, medication reconciliation, and communication with other providers. Discharge Instructions Please refer to the electronic Patient Visit Report (Discharge Instructions) for additional information. Additional Copies To [facility]
[2017-07-20 09:31] VITALS: BP 129/62; PULSE 59; TEMP 36.9; O2SAT 96
[2017-07-21 18:36] LABS: HEPATITIS C RNA TMA QUAL Detected
== END 2017-07-20 11:15 | disposition home or self-care (01) ==
LOC: C.EDB 12:20 → ENRESERV 15:01 → C.2T 16:11
PROVIDERS: ADMIT Hospitalist; ATTEND Hospitalist
DX: R07.89 Other chest pain (principal); E78.5 Hyperlipidemia, unspecified; I10 Essential (primary) hypertension; Z82.49 Family history of ischemic heart disease and other diseases of the circulatory system; F17.200 Nicotine dependence, unspecified, uncomplicated; Z79.82 Long term (current) use of aspirin; E03.9 Hypothyroidism, unspecified; R16.0 Hepatomegaly, not elsewhere classified; Z86.19 Personal history of other infectious and parasitic diseases